=== PATIENT | male | born 1970 | race Caucasian/White ===

== ENCOUNTER 2020-10-02 11:10 | Emergency (ER) | payer MEDICARE ==
[~2020-10-02] VITALS: Ht 177.8 cm; Wt 95.5 kg
[~2020-10-02 11:10] MED LIST: CLIN150C2 PO; MOT200T PO; NORCO10T PO
[2020-10-02 11:15] VITALS: BP 152/95
[2020-10-02] MEDS ORDERED: HYDR-3686 PO (11:21)
[2020-10-02] MEDS ORDERED: PERM60CR19 TOP (11:21)
== END 2020-10-02 11:29 | disposition home or self-care (01) ==
LOC: ER 11:10
DX: S80.862A Insect bite (nonvenomous), left lower leg, initial encounter (principal); S80.861A Insect bite (nonvenomous), right lower leg, initial encounter; F17.200 Nicotine dependence, unspecified, uncomplicated; F12.90 Cannabis use, unspecified, uncomplicated; F45.8 Other somatoform disorders; Z72.89 Other problems related to lifestyle; Z88.0 Allergy status to penicillin; Z79.2 Long term (current) use of antibiotics; Z79.899 Other long term (current) drug therapy; W57.XXXA Bitten or stung by nonvenomous insect and other nonvenomous arthropods, initial encounter; Y93.89 Activity, other specified; Y92.89 Other specified places as the place of occurrence of the external cause; Y99.8 Other external cause status
CPT/HCPCS: 99283